=== PATIENT | male | born 1940 | race Caucasian/White ===

== ENCOUNTER 2020-08-06 15:21 | Emergency (ER) | payer OTHER ==
[2020-08-06] MEDS ORDERED: HYDRALAZINE HCL 20 MG/ML VIAL ONE (16:00)
[2020-08-06 16:15] LABS: Protime INR 0.93
[2020-08-06 16:19] LABS: Absolute Lymphocytes (CBC) 1.6 K/uL (0.7-4.9); Basophils % 0.9 % (0-1.3); Hematocrit 41.6 % (39.6-49.0); Lymphocytes % 28.3 % (15.3-44.8); MPV 8.4 fL (7.6-11.3); RBC Red Blood Cell Count 5.01 M/uL (4.33-5.43)
[2020-08-06 16:31] LABS: ALT/SGPT 19 U/L (12-78); AST/SGOT 12 U/L (15-37); Albumin 3.7 g/dL (3.4-5.0); Alkaline Phosphatase 69 U/L (45-117); BUN Blood Urea Nitrogen 20 mg/dL (7-18); Bicarbonate 25 mmol/L (21-32); Bilirubin Direct 0.1 mg/dL (0-0.2); Bilirubin Total 0.4 mg/dL (0.2-1.0); Glucose Level 100 mg/dL (74-106); Magnesium 2.3 mg/dL (1.8-2.4); NT PRO-BNP 100 pg/mL (<450); Potassium 3.9 mmol/L (3.5-5.1); Protein, Total 7.2 g/dL (6.4-8.2); Sodium Level 139 mmol/L (136-145); Troponin (Emerg Dept Use Only) < 0.02 ng/mL (0.0-0.045)
--- NOTE | 2020-08-06 16:52 | RAD REPORT ---
EXAM DESCRIPTION: RAD - Chest Single View - 08/06/2020 4:42 pm CLINICAL HISTORY: HTN Chest pain. COMPARISON: CHEST PA AND LAT 2 VIEW dated 05/24/2013 FINDINGS: Portable technique limits examination quality. The lungs are grossly clear. The heart is upper limit of normal in size. No displaced fractures. IMPRESSION: No acute intrathoracic process suspected.
--- NOTE | 2020-08-06 17:35 | ER ---
Nurse's Notes [facility] Name: Hernan Flores Age: 79 yrs Sex: Male : 1940 Arrival Date: 08/06/2020 Time: 15:23 Bed 4 Private MD: Diagnosis: Hypertensive heart disease-Poorly controlled Presentation: 08/06 15:40 Chief complaint: Patient states: "I had an appointment with Dr. Monaco, but my blood ss pressure was 200/?? and she advised me to come here." Pt denies SOB, CP, reports he may have a slight headache. Coronavirus screen: Client denies travel out of the [place] in the last 14 days. Ebola Screen: Patient denies exposure to infectious person. Patient denies travel to an Ebola-affected area in the 21 days before illness onset. Initial Sepsis Screen: Does the patient meet any 2 criteria? No. Patient's initial sepsis screen is negative. Does the patient have a suspected source of infection? No. Patient's initial sepsis screen is negative. Risk Assessment: Do you want to hurt yourself or someone else? Patient reports no desire to harm self or others. 15:40 Method Of Arrival: Ambulatory ss 15:40 Acuity: CHERI 2 ss 16:54 Onset of symptoms is unknown. Care prior to arrival: None. Transition of care: patient enrique was not received from another setting of care. Historical: - Allergies: 15:45 No Known Allergies; ss - Home Meds: 15:45 candesartan oral 20 mg oral 1 tab once daily [Active]; ss - PMHx: 15:45 Hypertension; ss - Immunization history:: Adult Immunizations up to date. - Social history:: Smoking status: Patient denies any tobacco usage or history of. Screenin:00 Abuse screen: Denies threats or abuse. Denies injuries from another. Nutritional jl7 screening: No deficits noted. Tuberculosis screening: No symptoms or risk factors identified. Fall Risk IV access (20 points). Total Malave Fall Scale indicates No Risk (0-24 pts). Assessment: 16:00 General: Appears in no apparent distress. uncomfortable, Behavior is calm, cooperative, jl7 appropriate for age. Pain: Denies pain. Neuro: Level of Consciousness is awake, alert, obeys commands, Oriented to person, place, time, situation. Cardiovascular: Denies chest pain, Patient's skin is warm and dry. Respiratory: Airway is patent Respiratory effort is even, unlabored, Respiratory pattern is regular, symmetrical, Denies shortness of breath. GI: No signs and/or symptoms were reported involving the gastrointestinal system. : No signs and/or symptoms were reported regarding the genitourinary system. Derm: Skin is pink, warm \\T\\ dry. 17:00 Reassessment: Patient appears in no apparent distress at this time. No changes from jl7 previously documented assessment. Patient and/or family updated on plan of care and expected duration. Pain level reassessed. Patient is alert, oriented x 3, equal unlabored respirations, skin warm/dry/pink. 18:07 Reassessment: Discharge on hold. Observing patient and monitoring VS after hydralazine ss administration. 18:59 Reassessment: Patient appears in no apparent distress at this time. No changes from jl7 previously documented assessment. Patient and/or family updated on plan of care and expected duration. Pain level reassessed. Patient is alert, oriented x 3, equal unlabored respirations, skin warm/dry/pink. Vital Signs: 15:40 BP 217 / 117; Pulse 60; Resp 16; Temp 97.0(TE); Pulse Ox 100% on R/A; Weight 74.39 kg; ss Height 5 ft. 9 in. (175.26 cm); Pain 0/10; 16:00 BP 191 / 107; Pulse 62; Resp 17; Pulse Ox 99% ; jl7 16:30 BP 151 / 94; Pulse 66; Resp 15; Pulse Ox 98% ; jl7 17:16 BP 166 / 96; Pulse 75; Resp 17; Pulse Ox 100% ; jl7 17:56 BP 181 / 101; Pulse 72; ss 18:45 BP 168 / 92; ss 18:45 Pulse 58; ss 18:48 BP 164 / 94; Pulse 64; Pulse Ox 97% on R/A; Pain 0/10; ss 15:40 Body Mass Index 24.22 (74.39 kg, 175.26 cm) ss 17:56 Dr. Snider notified. Hydralazine 25mg PO ordered ss ED Course: 15:23 Patient arrived in ED. ag5 15:35 Adryan Ayers, SCARLET is Primary Nurse. jl7 15:43 Triage completed. ss 15:44 Oneal Snider MD is Attending Physician. kdr 15:45 Arm band placed on right wrist. ss 16:00 Patient has correct armband on for positive identification. Placed in gown. Bed in low jl7 position. Call light in reach. Side rails up X 1. surveillance system monitor on. Pulse ox on. NIBP on. 16:00 Initial lab(s) drawn, by nh, sent to lab. Inserted saline lock: 20 gauge in left jl7 forearm, using aseptic technique. Blood collected. 16:36 EKG done, by ED staff, reviewed by Oneal Snider MD. [facility] 16:42 XRAY Chest (1 view) In Process Unspecified. EDMS 18:59 No provider procedures requiring assistance completed. IV discontinued, intact, jl7 bleeding controlled, No redness/swelling at site. Pressure dressing applied. Administered Medications: 16:00 Drug: hydrALAZINE 10 mg Route: IV; Rate: calculated rate; Site: left forearm; 7 16:30 Follow up: Response: Blood pressure is lowered; IV Status: Completed infusion jl7 18:01 Not Given (10 mg tabs available only. GIve [address] Snider): HydrALAZINE 25 ss mg PO once 18:07 Drug: hydrALAZINE 20 mg Route: PO; ss 18:50 Follow up: Response: No adverse reaction; Blood pressure is lowered jl Outcome: 17:34 Discharge ordered by . kdr 18:59 Discharged to home ambulatory. jl7 18:59 Condition: stable 18:59 Discharge instructions given to patient, family, Instructed on discharge instructions, follow up and referral plans. medication usage, Demonstrated understanding of instructions, follow-up care, medications, Prescriptions given X 1. 19:01 Patient left the ED. jl7 Signatures: Dispatcher [employer] EDPA Oneal Snider MD MD [facility] Cristina Marques RN RN Adryan Ayers RN RN [facility] Sandra Monaco [facility] Vesna Johnston 5 Corrections: (The following items were deleted from the chart) 16:54 16:53 BP 151 / 94; Pulse 66bpm; Resp 15bpm; Pulse Ox 98%; jl7 jl7
--- NOTE | 2020-08-06 17:35 | EDPHYS ---
Physician Documentation [facility] Name: Hernan Flores Age: 79 yrs Sex: Male : 1940 Arrival Date: 08/06/2020 Time: 15:23 Bed 4 Private MD: ED Physician Oneal Snider HPI: 08/06 20:19 This 79 yrs old Male presents to ER via Ambulatory with complaints of High kdr Blood Pressure. 20:19 The patient has elevated blood pressure and discovered this at a physician's office, [facility] and sent to the emergency department for evaluation. Onset: The symptoms/episode began/occurred at an unknown time. Modifying factors: The symptoms are aggravated by Nothing, The symptoms are alleviated by Nothing. Associated signs and symptoms: The patient has no apparent associated signs or symptoms. Severity of symptoms: At its worst the blood pressure was severe, just prior to arrival, 217 mm Hg, in the emergency department the blood pressure is improved, mildly, 200 mm Hg, Initially. The patient has not experienced similar symptoms in the past. The patient has not recently seen a physician. The patient was unaware that his BP was elevated. Historical: - Allergies: 15:45 No Known Allergies; ss - Home Meds: 15:45 candesartan oral 20 mg oral 1 tab once daily [Active]; ss - PMHx: 15:45 Hypertension; ss - Immunization history:: Adult Immunizations up to date. - Social history:: Smoking status: Patient denies any tobacco usage or history of. ROS: 20:19 Constitutional: Negative for fever, chills, and weight loss, Eyes: Negative for injury, kdr pain, redness, and discharge, ENT: Negative for injury, pain, and discharge, Neck: Negative for injury, pain, and swelling, Cardiovascular: Negative for chest pain, palpitations, and edema, Respiratory: Negative for shortness of breath, cough, wheezing, and pleuritic chest pain, Abdomen/GI: Negative for abdominal pain, nausea, vomiting, diarrhea, and constipation, Back: Negative for injury and pain, : Negative for injury, bleeding, discharge, and swelling, MS/Extremity: Negative for injury and deformity, Skin: Negative for injury, rash, and discoloration, Neuro: Negative for headache, weakness, numbness, tingling, and seizure activity. Psych: Negative for depression, anxiety, suicide ideation, homicidal ideation, and hallucinations, Allergy/Immunology: Negative for hives, rash, and allergies, Endocrine: Negative for neck swelling, polydipsia, polyuria, polyphagia, and marked weight changes, Hematologic/Lymphatic: Negative for swollen nodes, abnormal bleeding, and unusual bruising. Exam: 20:19 Constitutional: This is a well developed, well nourished patient who is awake, alert, kdr and in no acute distress. Head/Face: Normocephalic, atraumatic. Eyes: Pupils equal round and reactive to light, extra-ocular motions intact. Lids and lashes normal. Conjunctiva and sclera are non-icteric and not injected. Cornea within normal limits. Periorbital areas with no swelling, redness, or edema. Neck: Trachea midline, no thyromegaly or masses palpated, and no cervical lymphadenopathy. Supple, full range of motion without nuchal rigidity, or vertebral point tenderness. No Meningismus. Chest/axilla: Normal chest wall appearance and motion. Nontender with no deformity. No lesions are appreciated. Cardiovascular: Regular rate and rhythm with a normal S1 and S2. No gallops, murmurs, or rubs. Normal PMI, no JVD. No pulse deficits. Respiratory: Lungs have equal breath sounds bilaterally, clear to auscultation and percussion. No rales, rhonchi or wheezes noted. No increased work of breathing, no retractions or nasal flaring. Abdomen/GI: Soft, non-tender, with normal bowel sounds. No distension or tympany. No guarding or rebound. No evidence of tenderness throughout. Back: No spinal tenderness. No costovertebral tenderness. Full range of motion. Skin: Warm, dry with normal turgor. Normal color with no rashes, no lesions, and no evidence of cellulitis. MS/ Extremity: Pulses equal, no cyanosis. Neurovascular intact. Full, normal range of motion. Neuro: Awake and alert, GCS 15, oriented to person, place, time, and situation. Cranial nerves II-XII grossly intact. Motor strength 5/5 in all extremities. Sensory grossly intact. Cerebellar exam normal. Normal gait. Psych: Awake, alert, with orientation to person, place and time. Behavior, mood, and affect are within normal limits. 20:36 ECG was reviewed by the Attending Physician. kdr Vital Signs: 15:40 BP 217 / 117; Pulse 60; Resp 16; Temp 97.0(TE); Pulse Ox 100% on R/A; Weight 74.39 kg; ss Height 5 ft. 9 in. (175.26 cm); Pain 0/10; 16:00 BP 191 / 107; Pulse 62; Resp 17; Pulse Ox 99% ; jl7 16:30 BP 151 / 94; Pulse 66; Resp 15; Pulse Ox 98% ; jl7 17:16 BP 166 / 96; Pulse 75; Resp 17; Pulse Ox 100% ; jl7 17:56 BP 181 / 101; Pulse 72; ss 18:45 BP 168 / 92; ss 18:45 Pulse 58; ss 18:48 BP 164 / 94; Pulse 64; Pulse Ox 97% on R/A; Pain 0/10; ss 15:40 Body Mass Index 24.22 (74.39 kg, 175.26 cm) ss 17:56 Dr. Snider notified. Hydralazine 25mg PO ordered ss MDM: 17:34 Patient medically screened. kdr 20:19 Data reviewed: vital signs, nurses notes, lab test result(s). Counseling: I had a kdr detailed discussion with the patient and/or guardian regarding: the historical points, exam findings, and any diagnostic results supporting the discharge/admit diagnosis, lab results, the need for outpatient follow up. ED course: The patient BP responded well to Hydralazine. Consulted DR. Harding who saw the patient in the ED and advised on discharge and follow-up. 08/06 15:45 Order name: Basic Metabolic Panel; Complete Time: 17: [facility] 08/06 15:45 Order name: CBC with Diff; Complete Time: 17: [facility] 08/06 15:45 Order name: LFT's; Complete Time: 17: [facility] 08/06 15:45 Order name: Magnesium; Complete Time: 17: [facility] 08/06 15:45 Order name: NT PRO-BNP; Complete Time: 17: [facility] 08/06 15:45 Order name: PT-INR; Complete Time: 17: [facility] 08/06 15:45 Order name: Troponin (emerg Dept Use Only); Complete Time: 17: [facility] 08/06 15:45 Order name: XRAY Chest (1 view); Complete Time: 17: [facility] 08/06 15:45 Order name: EKG; Complete Time: 15:46 [facility] 08/06 15:45 Order name: Cardiac monitoring; Complete Time: 16:13 [facility] 08/06 15:45 Order name: EKG - Nurse/Tech; Complete Time: 16:39 [facility] 08/06 15:45 Order name: IV Saline Lock; Complete Time: 16:13 [facility] 08/06 15:45 Order name: Labs collected and sent; Complete Time: 16:13 [facility] 08/06 15:45 Order name: O2 Per Protocol; Complete Time: 16:13 [facility] 08/06 15:45 Order name: O2 Sat Monitoring; Complete Time: 16:13 [facility] EC:36 Rate is 62 beats/min. Rhythm is regular, Normal Sinus Rhythm with No ectopy. QRS Valentine kdr is Normal. NV interval is normal. QRS interval is normal. QT interval is normal. No Q waves. Clinical impression: Normal ECG. Administered Medications: 16:00 Drug: hydrALAZINE 10 mg Route: IV; Rate: calculated rate; Site: left forearm; [facility] 16:30 Follow up: Response: Blood pressure is lowered; IV Status: Completed infusion jl7 18:01 Not Given (10 mg tabs available only. GIve [address] Snider): HydrALAZINE 25 ss mg PO once 18:07 Drug: hydrALAZINE 20 mg Route: PO; ss 18:50 Follow up: Response: No adverse reaction; Blood pressure is lowered jl7 Disposition: 08/06/20 17:34 Discharged to Home. Impression: Hypertensive heart disease - Poorly controlled. - Condition is Stable. - Discharge Instructions: Hypertension, [id number]. - Prescriptions for Hydralazine 25 mg Oral Tablet - take 1 tablet by ORAL route 2 times per day with food; 20 tablet. - Medication Reconciliation Form, Thank You Letter form. - Follow up: Private Physician; When: 2 - 3 days; Reason: If symptoms return, Further diagnostic work-up, Recheck today's complaints, Continuance of care, Re-evaluation by your physician. - Problem is an acute exacerbation. - Symptoms have improved. - Notes: Please call Dr. Harding if [phone])you are unable to contact Dr. Soto for follow-up Signatures: Dispatcher [employer] EDHI Oneal Snider MD MD kdr Cristina Marques RN RN ss Adryan Ayers RN RN jl7 Corrections: (The following items were deleted from the chart) 19:01 17:34 08/06/2020 17:34 Discharged to Home. Impression: Hypertensive heart disease - jl7 Poorly controlled. Condition is Stable. Forms are Medication Reconciliation Form, Thank You Letter, Antibiotic Education, Prescription Opioid Use. Follow up: Private Physician; When: 2 - 3 days; Reason: If symptoms return, Further diagnostic work-up, Recheck today's complaints, Continuance of care, Re-evaluation by your physician. Problem is an acute exacerbation. Symptoms have improved. kdr
[2020-08-06] MEDS ORDERED: hydroCHLOROthiazide 25 MG TAB ONE (18:07)
[2020-08-06] MEDS ORDERED: HYDRALAZINE HCL 10 MG TABLET ONE (18:13)
[2020-08-06 19:07] VITALS: TEMP 97
[2020-08-06 19:14] VITALS: BP 164/94; O2SAT 97
--- NOTE | 2020-08-07 08:45 | EKG ---
Test Date: 2020-08-06 Test Time: 16:35:21 Certified Vehicle Fire Investigator: PILAR MEASUREMENT RESULTS: Intervals: Rate: 62 ME: 176 QRSD: 102 QT: 434 QTc: 440 [place]: P: 47 ME: 176 QRS: -13 T: 33 INTERPRETIVE STATEMENTS: Normal sinus rhythm Normal ECG No previous ECG available for comparison Electronically Signed On 08-07-20 08:43:19 CDT by Jose Manuel Regalado
--- NOTE | 2020-08-11 08:51 | P.CNS ---
Date of Consult: 08/06/20 Reason for Consult: Hypertensive urgency Requesting Physician: Oneal Snider Primary Care Provider: Kennedy Soto Chief Complaint: Headache History of Present Illness: patient is a 79-year-old gentleman who came into the emergency room with headache. His left ear has been bothering him. He was seen a local ENT physician at her office. At the office the blood pressure was 200/100. Patient was sent to the emergency room where he was worked up by emergency room physician. He was found to have a significantly elevated blood pressure. I got a call from the emergency room physician for evaluation. I spoke to the patient about the high blood pressure. We were able to get it down to about 150/90 in the emergency room with IV medications-hydralazine. His headache was improved. He was not wanting to be admitted to the hospital. At this time, the patient can be discharged and will give him hydralazine 25 mg p.o. b.i.d. Will need to follow up with his PCP hand he will also need to see a ortho rn for complete cardiac workup including Echocardiogram, carotid Doppler, and possibly a stress tests. I told him the importance of evaluating why his blood pressure suddenly became elevated. He appears to understand. Patient will be discharged with additional BP medications at this time. - Past Medical/Surgical History -: Hypertension Past Surgical History: Reviewed- Non-Contributory - Family History Father Family History: Reviewed- Non-Contributory - Social History Smoking Status: Never smoker Smoking therapy provided: No Alcohol use: No CD- Drugs: No Review of Systems 10-point ROS is otherwise unremarkable Physical Examination Temp Pulse Resp BP Pulse Ox 97.0 F 64 17 164/94 H 08/06/20 15:40 08/06/20 18:48 08/06/20 17:16 08/06/20 18:48 General: Alert, In no apparent distress, Oriented x3 HEENT: Atraumatic, PERRLA, Mucous membr. moist/pink, EOMI, Sclerae nonicteric Neck: Supple, 2+ carotid pulse no bruit, No LAD, Without JVD or thyroid abnormality Respiratory: Clear to auscultation bilaterally, Normal air movement Cardiovascular: Regular rate/rhythm, Normal S1 S2, No murmurs Gastrointestinal: Normal bowel sounds, Soft and benign, Non-distended, No tenderness Musculoskeletal: No tenderness Integumentary: No rashes Neurological: Normal gait, Normal speech, Normal strength at 5/5 x4 extr, Normal tone, Sensation intact, Cranial nerves 3-12 intact, Normal affect Lymphatics: No axilla or inguinal lymphadenopathy - Problems (1) Hypertensive urgency Status: Acute (2) Left ear pain Status: Acute Conclusions/ Impression: Plan: 1. Start patient on hydralazine 25 mg p.o. b.i.d. 2. Outpatient cardiology workup with carotid Dopplers, echocardiogram, and possible stress test 3. If headache returns patient needs to follow up with urology 4. Return to the Emergency room if his symptoms worsen 5. Follow with PCP in 1-2 weeks Critical Care: No Time Spent Managing Pts care (In Minutes): 40
== END 2020-08-06 19:01 | disposition home or self-care (01) ==
LOC: ER 15:21
DX: I11.9 Hypertensive heart disease without heart failure (principal); I10 Essential (primary) hypertension; H92.02 Otalgia, left ear
CPT/HCPCS: 96365; 93005; 85025; 80048; 36415; 83735; 85610; 80076; 84484; 83880; 71045; 99285; J0360

== ENCOUNTER 2022-11-10 09:20 | Day surgery (SDC) | payer OTHER ==
[2022-11-04 08:44] LABS: Absolute Lymphocytes (CBC) 1.5 K/uL (0.7-4.9); Hematocrit 39.7 % (39.6-49.0); Lymphocytes % 31.3 % (15.3-44.8); MCV 82.7 fL (80-100)
[2022-11-04 08:46] LABS: Protime INR 0.93
[2022-11-04 08:54] LABS: Potassium 3.5 mmol/L (3.5-5.1)
--- NOTE | 2022-11-04 09:11 | RAD REPORT ---
EXAM DESCRIPTION: RAD - Chest Pa And Lat (2 Views) - 11/04/2022 8:50 am CLINICAL HISTORY: pre op for surgery Chest pain. COMPARISON: Chest Pa And Lat (2 Views) dated 10/22/2020; Chest Single View dated 08/06/2020; CHEST PA AND LAT 2 VIEW dated 05/24/2013 FINDINGS: The lungs are clear. The heart is upper limit of normal in size. No displaced fractures. IMPRESSION: No acute or concerning finding suspected.
--- NOTE | 2022-11-06 17:28 | EKG ---
Test Date: 2022-11-04 Test Time: 08:21:47 Choreography Director: LEX MEASUREMENT RESULTS: Intervals: Rate: 53 MA: 182 QRSD: 106 QT: 436 QTc: 409 [place]: P: 65 MA: 182 QRS: 19 T: 41 INTERPRETIVE STATEMENTS: Sinus bradycardia Otherwise normal ECG Compared to ECG 08/06/2020 16:35:21 Sinus rhythm no longer present Electronically Signed On 11-06-22 17:25:26 BRIEF WRITER by Luis Andrew
[2022-11-10] MEDS ORDERED: Ringers Lactate 1,000 ML IV ONE (09:41)
[2022-11-10] MEDS: BUPIVACAINE 0.25% PF 10 ML VIAL ONE ×3 (10:19→11:52)
[2022-11-10] MEDS ORDERED: propofoL 200 MG/20 ML VIAL IV ONE (10:50)
[2022-11-10] MEDS ORDERED: FENTANYL CITR 100 MCG/2 ML ONE (10:50)
[2022-11-10] MEDS ORDERED: LIDOCAINE 2% MPF 5 ML VIAL ONE (10:50)
[2022-11-10] MEDS ORDERED: ONDANSETRON 4 MG/2 ML VIAL ONE (10:50)
[2022-11-10] MEDS ORDERED: CEFAZOLIN SODIUM 1 GM/VIAL ONE (10:59)
--- NOTE | 2022-11-10 12:11 | P.BOP ---
Preoperative diagnosis: left index and middle finger trigger digit Postoperative diagnosis: same Primary procedure: left index finger A1 shannon release Secondary procedure: left middle finger A1 shannon release Sample Carrier: NONE,NONE Estimated blood loss: 3 cc Specimen: none Findings: see dictation Anesthesia: General Complications: None Implants: none Fluids & blood products: per anesthesia record; TT: 23 mins @ 250 mmHg Transferred to: Recovery Room Condition: Good
[2022-11-10] MEDS: FENTANYL CITR 100 MCG/2 ML ONE ×2 (12:26→12:29)
[2022-11-10] MEDS: HYDROMORPHONE HCL 1 MG/ML INJ ONE ×4 (12:41→12:56)
[2022-11-10] MEDS ORDERED: KETOROLAC 30 MG/ML INJ ONE (12:42)
[2022-11-10 13:14] VITALS: BP 142/68; TEMP 97.4; O2SAT 97
[2022-11-10] MEDS ORDERED: CODEINE 30MG/APAP 300MG TAB ONE (13:33)
--- NOTE | 2022-11-11 17:17 | OP ---
Date of Procedure: 11/10/2022 Surgeon: Lennox Morales MD Preoperative Diagnoses: Left index and middle finger trigger digits. Postoperative Diagnoses: Left index and middle finger trigger digits. Procedures Performed: 1.Left index finger A1 shannon release. 2.Left middle finger A1 shannon release. Anesthesia: General LMA. Fluids: Per Anesthesia record. Estimated Blood Loss: 3 cc. Complications: None. Tourniquet Time: 23 minutes at 250 mmHg. Indication For Procedures: Hernan is an 81-year-old male who presented to my clinic with signs and s ymptoms consistent with left index and middle finger trigger digits. Patient failed conservative zay atment measures including corticosteroid injection. This pain interferes with his activities of javier y living, and we discussed operative treatment as well as nonoperative treatment. He expressed under standing and elected to proceed with operative treatment. Description Of Procedure: After informed consent was obtained, the patient was identified in the pre operative holding area. The left index and middle finger were marked. Patient was then brought back to the operating room, transferred to the operating table in the supine fashion, placed under genera l LMA anesthesia. The left upper extremity was then prepped and draped in usual sterile fashion. A time-out was initiated. The correct patient and procedure were confirmed and identified. Patient di d receive his preoperative prophylactic antibiotics. The left upper extremity was exsanguinated usin g the Esmarch and the tourniquet was inflated to 250 mmHg. Attention was first taken to the middle f mack where an approximately 1 cm longitudinal incision was made centered over the A1 shannon. Dissec tion was taken down to the flexor tendon sheath. Gentle retractor was performed using Srinath. The flexor tendon sheath was identified and incised along with the A1 shannon. A portion of the flexor te ndon sheath was excised to minimize risk for recurrence. There was significant amount of tenosynovia l fluid that was expressed after release of the flexor tendon sheath. The flexor tendon was then bro ught out through the incision using the Ragnell. There was full excursion of the tendon without any triggering noted. The wound was then irrigated thoroughly with normal saline. Skin was approximated using a 5-0 Prolene. Next, attention was taken to the index finger. A 1 cm longitudinal incision w as made centered over the A1 shannon. Dissection was then taken down to the flexor tendon sheath. Th e tendon sheath was identified and was split in line with the incision. A portion of the flexor tend on sheath was excised to minimize risk for recurrence. The flexor tendon was then brought out throug h the incision and there was full excursion of the tendon without triggering noted. The wound was th en irrigated thoroughly with normal saline. Skin was approximated using a 5-0 Prolene. Sterile dres sings were applied. Tourniquet was let down. Patient was awakened and transferred to PACU in stable condition. Postoperative Plan: Patient will be nonweightbearing in his left upper extremity. He will follow up in 1 to 2 weeks for wound check and suture removal. CV/MODL Voice ID: [id number] Report ID: [id number]
== END 2022-11-10 13:50 | disposition home or self-care (01) ==
LOC: OR 09:20
PROVIDERS: ATTEND Orthopaedic Surgery Sports Medicine
PROC: 0LN80ZZ Release Left Hand Tendon, Open Approach (ICD-10-PCS; 2022-11-10)
PROC: 0LN80ZZ Release Left Hand Tendon, Open Approach (ICD-10-PCS; principal; 2022-11-10 11:00)
DX: M65.322 Trigger finger, left index finger (principal); M65.332 Trigger finger, left middle finger; M25.542 Pain in joints of left hand; I10 Essential (primary) hypertension; K21.9 Gastro-esophageal reflux disease without esophagitis
CPT/HCPCS: 93005; 85025; 80048; 36415; 85610; 85730; 71046; 26055 ×2; J2704; J2001; J3010 ×2; J1170; J7120; J2405; J0690